=== PATIENT | female | born 1950 | race Two or more races ===

== ENCOUNTER 2024-11-06 15:06 | Inpatient (IN) | payer OTHER ==
[~2024-11-06] VITALS: Ht 170.2 cm; Wt 64.0 kg
[2024-11-06] MEDS ORDERED: ROSUVASTATIN CA20 MG (15:20)
[2024-11-06] MEDS ORDERED: SINGULAIR10 MG (15:20)
[2024-11-06] MEDS ORDERED: LUMIGAN2.5 M1 (15:20)
[2024-11-06] MEDS ORDERED: COZAAR50 MG (15:20)
[2024-11-06] MEDS ORDERED: [UNRECOGNIZED DRUG - OTHER] (15:20)
[2024-11-06] MEDS ORDERED: FAMOTIDINE/PF 20 MG in 0.9 % SODIUM CHLORIDE 8 ML IV PUSH STA (16:21)
[2024-11-06] MEDS ORDERED: 0.9 % SODIUM CHLORIDE 1,000 ML IV SCH ×2 (16:30→21:15)
[2024-11-06] MEDS ORDERED: METHYLPREDNISOLONE SOD SUCC 125 MG VIAL IV ONE (16:30)
[2024-11-06] MEDS ORDERED: KETOROLAC TROMETHAMINE 30 MG VIAL IV ONE (16:30)
[2024-11-06] MEDS ORDERED: ONDANSETRON HCL 2 MG/ML VIAL IV ONE (16:30)
[2024-11-06] MEDS ORDERED: ONDANSETRON HCL 2 MG/ML VIAL ONE (16:33)
[2024-11-06] MEDS ORDERED: KETOROLAC TROMETHAMINE 30 MG VIAL ONE (16:33)
[2024-11-06] MEDS ORDERED: METHYLPREDNISOLONE SOD SUCC 125 MG VIAL ONE (16:33)
[2024-11-06] MEDS ORDERED: FAMOTIDINE/PF 20 MG/2 ML VIAL ONE (16:33)
[2024-11-06 17:46] LABS: BASO % 0.8 % (0.1-1.2); EOS # 1.04 (0.04-0.54); EOS % 13.2 % (0.7-7.0); HEMATOCRIT 36.1 % (34.1-44.9); HEMOGLOBIN 12.2 g/dL (11.2-15.7); LYMPH # 1.65 (1.18-3.74); MEAN CORPUSCULAR HEMOGLOBIN 32.1 pg (25.6-32.2); MONO # 1.06 (0.24-0.82); NEUT # 4.03 (1.56-6.13); NEUT % 51.2 % (34.0-71.1); PLATELET COUNT 136 K/uL (163-369); RED CELL DISTRIBUTION WIDTH 13.3 % (11.6-14.4)
[2024-11-06 17:48] LABS: MONO % 13.5 % (4.7-12.5)
[2024-11-06 18:12] LABS: ALBUMIN 3.2 gm/dL (3.4-5.0); BILIRUBIN TOTAL 0.86 mg/dL (0.3-1.2); BILIRUBIN,CONJUGATED 0.49 mg/dL (0.0-0.2); BILIRUBIN,UNCONJUGATED 0.37 mg/dL (0.0-0.6); CALCIUM 8.8 mg/dL (8.5-10.1); CREATININE SERUM 1.05 mg/dL (0.55-1.02); GFR 50.95; GLOBULINA 4.1 G/DL (2.4-3.5); POTASSIUM 3.78 mEq/L (3.5-5.1); TOTAL PROTEIN 7.3 gm/dL (6.4-8.2)
[2024-11-06] MEDS ORDERED: PIPERACILLIN/TAZOBACTAM SODIUM 3.375 GM in DEXTROSE 5 % IN WATER 100 ML IV SCH (21:11)
[2024-11-06] MEDS ORDERED: ONDANSETRON HCL 4 MG in 0.9 % SODIUM CHLORIDE 50 ML IV PRN (21:15)
[2024-11-06] MEDS ORDERED: ACETAMINOPHEN 500 MG GEL..CAP PO PRN (21:15)
[2024-11-06] MEDS ORDERED: MORPHINE SULFATE 2 MG/ML CARTRIDGE IV PRN (21:15)
[2024-11-07 05:00] LABS: INR 1.1; PARTIAL THROMBOPLASTIN TIME 25.9 SECONDS (22.0-34.0); PROTHROMBIN TIME 11.9 SECONDS (9.0-11.5)
[2024-11-07 05:22] VITALS: BP 142/68
[2024-11-07 08:00] VITALS: BP 149/72; O2SAT 99
[2024-11-07] MEDS ORDERED: ROSUVASTATIN CALCIUM 10 MG TABLET PO SCH (09:00)
[2024-11-07] MEDS ORDERED: FF) FLECAINIDE ACETATE 50MG TAB PO SCH (09:00)
[2024-11-07 11:17] LABS: PH,URINE 6.5 (5.0-8.0); URINE APPEARANCE Clear; URINE BILIRRUBIN Negative (NEGATIVE); URINE BLOOD Negative; URINE COLOR Yellow; URINE GLUCOSE Negative (NEGATIVE); URINE KETONE Negative (NEGATIVE); URINE LEUKOCYTE Large; URINE NITRATE Negative; URINE PROTEIN Negative (NEGATIVE); URINE UROBILINOGEN 0.2 E.U./dl
[2024-11-07 11:21] LABS: URINE BACTERIA 200.6 uL (0.0-1933); URINE EPITHELIAL CELLS 10.9 uL (0.0-38.8); URINE RBC 3.6 uL (0.0-20.8); URINE WBC 108.7 uL (0.0-23.2)
[2024-11-07] MEDS ORDERED: MORPHINE SULFATE 4 MG/ML VIAL IV ONE ×2 (16:10→16:40)
[2024-11-07] MEDS ORDERED: MONTELUKAST SODIUM 10 MG TABLET PO SCH (17:00)
[2024-11-07] MEDS ORDERED: LOSARTAN POTASSIUM 25 MG TABLET PO SCH (17:00)
[2024-11-08 02:03] VITALS: BP 127/70
[2024-11-08] MEDS ORDERED: POLYETHYLENE GLYCOL 3350 17 GM BLIST.PACK PO STA (08:11)
[2024-11-08] MEDS ORDERED: MINERAL OIL 30 ML BLIST.PACK PO STA (08:12)
[2024-11-08] MEDS ORDERED: FF) FLECAINIDE ACETATE 50MG TAB PO SCH (09:00)
[2024-11-08 09:05] VITALS: BP 148/63; O2SAT 96
[2024-11-08] MEDS ORDERED: LACTULOSE 20 G/30 ML BLIST.PACK PO NR (11:00)
== END 2024-11-08 14:01 | disposition home or self-care (01) | DRG 419 ==
LOC: ER 15:35 → MEDI 21:54
PROVIDERS: General Practice; Specialist; ADMIT Student in an Organized Health Care Education/Training Program; ATTEND Student in an Organized Health Care Education/Training Program
PROC: 0FT44ZZ Resection of Gallbladder, Percutaneous Endoscopic Approach (ICD-10-PCS; principal; 2024-11-07 12:30)
DX: K80.20 Calculus of gallbladder without cholecystitis without obstruction (principal); I48.91 Unspecified atrial fibrillation; I10 Essential (primary) hypertension